=== PATIENT | male | born 1995 | race Caucasian/White ===

== ENCOUNTER 2019-03-26 18:23 | Emergency (ER) | payer SELFPAY ==
[~2019-03-26] VITALS: Ht 167.6 cm; Wt 68.0 kg
--- NOTE | 2019-03-26 18:39 | NUR ---
Dr Cameron at the bedside for MSE.
--- NOTE | 2019-03-26 19:33 | NUR ---
Dr. Guzman at bedside for MSE
--- NOTE | 2019-03-26 20:51 | NUR ---
Patient discharged to home in stable conditon. Written and verbal after care instructions given. Patient verbalizes understanding of instructions. Patient ambulating with steady gait
[2019-03-26 20:52] VITALS: BP 112/63
== END 2019-03-26 20:51 | disposition home or self-care (01) ==
LOC: ER 18:23
DX: J40 Bronchitis, not specified as acute or chronic (principal); F17.210 Nicotine dependence, cigarettes, uncomplicated
CPT/HCPCS: 71045; 87400; A4663